=== PATIENT | male | born 1965 | race Caucasian/White ===

== ENCOUNTER 2016-12-10 14:41 | Emergency (ER) | payer MEDICARE ==
[~2016-12-10] VITALS: Ht 175.2 cm; Wt 77.1 kg
[~2016-12-10 14:41] MED LIST: MOTRIN800 MG PO
[2016-12-10] MEDS ORDERED: CYCLOBENZAPRINE5 M3 PO (17:14)
[2016-12-10] MEDS ORDERED: Motrin,Rufen800 MG PO (17:14)
[2016-12-10] MEDS ORDERED: HYDROCODONE BIT1 T11 PO (17:14)
== END 2016-12-10 17:25 | disposition home or self-care (01) ==
LOC: ED 14:41
DX: G89.29 Other chronic pain (principal); M54.5 Low back pain; F17.200 Nicotine dependence, unspecified, uncomplicated; Z90.49 Acquired absence of other specified parts of digestive tract; Z98.890 Other specified postprocedural states

== ENCOUNTER 2017-03-10 20:16 | Emergency (ER) | payer MEDICARE ==
[~2017-03-10] VITALS: Ht 175.2 cm; Wt 81.6 kg
[~2017-03-10 20:16] MED LIST changes: +CYCLOBENZAPRINE5 M3 PO; +HYDROCODONE BIT1 T11 PO; +Motrin,Rufen800 MG PO
[2017-03-10] MEDS ORDERED: ANUSOL-HC25 MG R (20:55)
[2017-03-10] MEDS ORDERED: MIRALAX POWDER255 G1 PO (21:27)
== END 2017-03-10 21:59 | disposition home or self-care (01) ==
LOC: ED 20:16
DX: K64.8 Other hemorrhoids (principal); K62.89 Other specified diseases of anus and rectum; F17.200 Nicotine dependence, unspecified, uncomplicated; Z90.49 Acquired absence of other specified parts of digestive tract

== ENCOUNTER 2021-02-13 21:42 | Emergency (ER) | payer MEDICARE ==
[~2021-02-13] VITALS: Wt 81.6 kg
[~2021-02-13 21:42] MED LIST changes: +ANUSOL-HC25 MG R; +MIRALAX POWDER255 G1 PO
[2021-02-13 22:19] LABS: BASO # 0.1 10*3/uL (0.0-0.1); BASO % 0.5 % (0.0-1.0); EOS # 0.6 10*3/uL (0.0-0.4); EOS % 4.2 % (1.0-4.0); HEMATOCRIT 44.3 % (42.0-52.0); LYMPH # 2.4 10*3/uL (1.3-4.4); LYMPH % 18.3 % (27.0-41.0); MEAN CELL VOLUME 88.8 fl (80.0-94.0); MEAN CORPUSCULAR HGB 28.9 pg (27.0-31.0); MEAN CORPUSCULAR HGB CONC 32.5 g/dl (33.0-37.0); MEAN PLATELET VOLUME 10.1 fl (9.6-12.3); MONO # 1.3 10*3/uL (0.1-1.0); MONO % 9.6 % (3.0-9.0); NEUT # 8.8 10*3/uL (2.3-7.9); NEUT % 67.1 % (47.0-73.0); PLATELET COUNT AUTOMATED 316 10*3/uL (130-400); RED BLOOD COUNT 4.99 10*6/uL (4.50-5.90); WHITE BLOOD COUNT 13.1 10*3/uL (4.8-10.8)
[2021-02-13 22:33] LABS: ALBUMIN 3.5 gm/dl (3.1-4.5); ALKALINE PHOSPHATASE 92 U/L (45-117); BUN 14 mg/dl (7-24); CHLORIDE 107 mmol/L (98-107); CREATININE 0.89 mg/dL (0.70-1.30); POTASSIUM 3.6 mmol/L (3.5-5.1); SGOT/AST 12 IU/L (3-35); SGPT/ALT 25 U/L (12-78); SODIUM 138 mmol/L (136-145); TOTAL PROTEIN 7.2 gm/dL (6.4-8.2)
== END 2021-02-14 00:10 | disposition home or self-care (01) ==
LOC: ED 21:42
PROVIDERS: Physician Assistant
DX: J98.01 Acute bronchospasm (principal); Z79.899 Other long term (current) drug therapy; Z90.49 Acquired absence of other specified parts of digestive tract; Z98.890 Other specified postprocedural states

== ENCOUNTER 2021-10-06 01:46 | Emergency (ER) | payer MEDICARE | END 2021-10-06 02:48 | disposition left against medical advice (07) | LOC: ED 01:46 | DX: R05.9 Cough, unspecified (principal); R19.7 Diarrhea, unspecified; F17.200 Nicotine dependence, unspecified, uncomplicated; Z90.49 Acquired absence of other specified parts of digestive tract; Z98.890 Other specified postprocedural states ==